=== PATIENT | male | born 1940 | race Caucasian/White ===

== ENCOUNTER 2021-06-23 00:03 | Emergency (ER) | payer OTHER ==
[~2021-06-23 00:03] MED LIST: ASPIRIN81 MG PO; CARDIZEM LA240 MG PO; COUMADIN5 MG PO; FLOMAX0.4 MG PO; K-DUR20 MEQ PO; LANOXIN125 MCG PO; LASIX40 MG PO; LIPITOR10 MG PO; PROTONIX40 MG PO; VITAMIN D250000 UNIT PO
[2021-06-23 01:10] LABS: BILIRUBIN NEGATIVE (NEGATIVE); BLOOD 2+ Ery/uL (NEGATIVE); COLOR YELLOW (YELLOW); GLUCOSE (U) NORMAL (NORMAL); LEUKOCYTES NEGATIVE Leu/uL (NEGATIVE); NITRITE NEGATIVE (NEGATIVE); PROTEIN NEGATIVE (NEGATIVE)
[2021-06-23 01:12] LABS: CLARITY SLIGHTLY HAZY (CLEAR)
[2021-06-23 01:18] LABS: BACTERIA TRACE
[2021-06-23 01:20] LABS: BUN/CREAT RATIO (CALC) 21.4 RATIO; CREATININE 0.84 mg/dL (0.67-1.17); POTASSIUM 4.1 mmol/L (3.5-5.1)
== END 2021-06-23 02:00 | disposition home or self-care (01) ==
LOC: FER 00:03
PROVIDERS: Emergency Medicine Emergency Medical Services
DX: R33.9 Retention of urine, unspecified (principal); Z88.4 Allergy status to anesthetic agent
CPT/HCPCS: 36415; 80048; 81001; 87088

== ENCOUNTER 2021-07-11 15:55 | Inpatient (IN) | payer OTHER ==
[~2021-07-11] VITALS: Ht 182.9 cm; Wt 82.6 kg
[2021-07-11 16:49] LABS: BASOPHIL 0.1 % (0-2); EOSINOPHIL 0 % (0-7); HCT 38.9 % (42.0-52.0); HGB 12.2 g/dl (13.2-18.0); LYMPHOCYTE 2.7 % (15-48); MCH 28.8 pg (25.0-31.0); MCHC 31.4 g/dL (32.0-36.0); MCV 91.7 fL (78.0-100.0); MONOCYTE 8.4 % (0-12); MPV 9.4 fL (6.0-9.5); NRBC 0; PLT 259 K/uL (150-400); RBC 4.24 M/uL (4.70-6.00); RDW 14.6 % (11.5-14.0); WBC 14.6 K/uL (4.0-10.5)
[2021-07-11 16:56] LABS: INR 2.91 (0.9-1.2); PROTHROMBIN TIME 29.4 SECONDS (11.8-13.4); PTT 30.6 SECONDS (24.4-34.7)
[2021-07-11 16:57] LABS: D-DIMER 3.4 ug/mLFEU (0.00-0.41)
[2021-07-11 17:07] LABS: IRON % SATURATION 8.5 %SAT (20-50)
[2021-07-11 17:22] LABS: ALBUMIN 2.4 g/dL (3.4-5.0); BILIRUBIN - TOTAL 1.6 mg/dL (0.2-1.0); BUN/CREAT RATIO (CALC) 15.6 RATIO; C-REACTIVE PROTEIN 12.7 mg/dL (<=0.90); CREATININE 1.35 mg/dL (0.67-1.17); GLOBULIN (CALCULATION) 4.2 g/dL; INFLUENZA A NAA NEGATIVE (NEGATIVE); MAGNESIUM 2.2 mg/dL (1.8-2.4); POTASSIUM 3.6 mmol/L (3.5-5.1); TOTAL PROTEIN 6.6 g/dL (6.4-8.2)
[2021-07-11 17:38] LABS: CORONAVIRUS 2019 SARS-COV-2 POSITIVE (NEGATIVE)
[2021-07-11 18:44] LABS: BILIRUBIN 1+ mg/dL (NEGATIVE); BLOOD 3+ Ery/uL (NEGATIVE); CLARITY CLEAR (CLEAR); COLOR YELLOW (YELLOW); GLUCOSE (U) NORMAL (NORMAL); LEUKOCYTES NEGATIVE Leu/uL (NEGATIVE); NITRITE NEGATIVE (NEGATIVE); PROTEIN TRACE (LOW) mg/dL (NEGATIVE); SPECIFIC GRAVITY 1.025 (1.001-1.030); pH 5.5 (5.0-9.0)
[2021-07-11 18:54] LABS: BACTERIA 1+; SQUAMOUS EPITHELIAL CELLS RARE; URINARY RBC TNTC
[2021-07-11] MEDS ORDERED: HYDROXYCHLOROQ200 MG PO (21:04)
[2021-07-11] MEDS ORDERED: VIBRAMYCIN100 MG PO (21:05)
[2021-07-11] MEDS ORDERED: PROMETHAZINE 2525 MG PO (21:06)
[2021-07-11] MEDS ORDERED: ONDANSETRON ODT8 MG PO (21:07)
[2021-07-12 07:33] LABS: BASOPHIL 0.1 % (0-2); EOSINOPHIL 0 % (0-7); HCT 34.2 % (42.0-52.0); LYMPHOCYTE 2.9 % (15-48); MCHC 32.2 g/dL (32.0-36.0); MCV 90.2 fL (78.0-100.0); MPV 9.6 fL (6.0-9.5); NEUTROPHIL 89.3 % (41-80); NRBC 0; PLT 210 K/uL (150-400); RBC 3.79 M/uL (4.70-6.00); RDW 14.6 % (11.5-14.0); WBC 10.7 K/uL (4.0-10.5)
[2021-07-12 08:15] LABS: ALBUMIN 2.1 g/dL (3.4-5.0); BILIRUBIN - TOTAL 1.2 mg/dL (0.2-1.0); BUN/CREAT RATIO (CALC) 30.3 RATIO; CREATININE 0.66 mg/dL (0.67-1.17); GLOBULIN (CALCULATION) 3.5 g/dL; POTASSIUM 4.3 mmol/L (3.5-5.1); TOTAL PROTEIN 5.6 g/dL (6.4-8.2)
[2021-07-12 09:01] LABS: PROTHROMBIN TIME 46.6 SECONDS (11.8-13.4)
[2021-07-12 09:04] LABS: INR 5.2 (0.9-1.2)
[2021-07-13 05:05] LABS: BASOPHIL 0.1 % (0-2); EOSINOPHIL 0 % (0-7); HCT 32.9 % (42.0-52.0); HGB 10.7 g/dl (13.2-18.0); MCH 29.2 pg (25.0-31.0); MCHC 32.5 g/dL (32.0-36.0); MCV 89.9 fL (78.0-100.0); MONOCYTE 7.7 % (0-12); MPV 9.7 fL (6.0-9.5); NEUTROPHIL 85.4 % (41-80); NRBC 0; PLT 258 K/uL (150-400); RBC 3.66 M/uL (4.70-6.00); RDW 14.6 % (11.5-14.0)
[2021-07-13 05:19] LABS: PROTHROMBIN TIME 54.4 SECONDS (11.8-13.4)
[2021-07-13 05:26] LABS: INR 6.32 (0.9-1.2)
[2021-07-13 05:57] LABS: ALBUMIN 2.3 g/dL (3.4-5.0); BUN/CREAT RATIO (CALC) 30.1 RATIO; C-REACTIVE PROTEIN 7.5 mg/dL (<=0.90); CREATININE 0.73 mg/dL (0.67-1.17); GLOBULIN (CALCULATION) 3.5 g/dL; TOTAL PROTEIN 5.8 g/dL (6.4-8.2)
--- NOTE | 2021-07-13 18:01 | NUR ---
07/13/21 Per telephone conversation with Ms. Kim. Mr. Kim lives at home with his spouse. He was independent in the home and community prior to admission. - PCP is Dr. Baldomero Mccullough. - Ms. Kim chose [facility] if needed at discharge. Please make appropriate referrals if patient is discharged over the weekend.
[2021-07-14 04:48] LABS: BASOPHIL 0.1 % (0-2); EOSINOPHIL 0 % (0-7); HCT 31.2 % (42.0-52.0); MCH 28.7 pg (25.0-31.0); MCHC 32.1 g/dL (32.0-36.0); MCV 89.7 fL (78.0-100.0); MONOCYTE 6.7 % (0-12); MPV 9.3 fL (6.0-9.5); NEUTROPHIL 87.4 % (41-80); NRBC 0; PLT 268 K/uL (150-400); RBC 3.48 M/uL (4.70-6.00); RDW 14.6 % (11.5-14.0); WBC 11.4 K/uL (4.0-10.5)
[2021-07-14 04:58] LABS: BUN/CREAT RATIO (CALC) 40.4 RATIO; CREATININE 0.57 mg/dL (0.67-1.17); POTASSIUM 4.5 mmol/L (3.5-5.1)
[2021-07-14 07:04] LABS: PROTHROMBIN TIME 56.5 SECONDS (11.8-13.4)
[2021-07-14 07:06] LABS: INR 6.62 (0.9-1.2)
[2021-07-15 04:17] LABS: PROTHROMBIN TIME 58.4 SECONDS (11.8-13.4)
[2021-07-15 04:20] LABS: INR 6.91 (0.9-1.2)
--- NOTE | 2021-07-15 19:09 | NUR ---
JOSE E DOLAN FOR PT TO SHOWER AND REMOVE TELE
[2021-07-16 06:03] LABS: BASOPHIL 0.1 % (0-2); EOSINOPHIL 0 % (0-7); HCT 28.5 % (42.0-52.0); HGB 9.2 g/dl (13.2-18.0); LYMPHOCYTE 3.2 % (15-48); MCH 28.6 pg (25.0-31.0); MCHC 32.3 g/dL (32.0-36.0); MCV 88.5 fL (78.0-100.0); MONOCYTE 6.9 % (0-12); MPV 9.4 fL (6.0-9.5); NEUTROPHIL 89.1 % (41-80); NRBC 0; PLT 302 K/uL (150-400); RBC 3.22 M/uL (4.70-6.00); RDW 14.3 % (11.5-14.0); WBC 13.2 K/uL (4.0-10.5)
[2021-07-16 06:14] LABS: PROTHROMBIN TIME 56.3 SECONDS (11.8-13.4)
[2021-07-16 06:35] LABS: BUN/CREAT RATIO (CALC) 53.3 RATIO; CREATININE 0.6 mg/dL (0.67-1.17); POTASSIUM 4.7 mmol/L (3.5-5.1)
[2021-07-16 06:42] LABS: INR 6.59 (0.9-1.2)
== END 2021-07-16 16:49 | disposition home health service (06) | DRG 177 ==
LOC: FER 15:55 → FTCU 07-12 14:49
PROVIDERS: Allergy & Immunology; Allergy & Immunology Allergy; Emergency Medicine; ADMIT Internal Medicine
PROC: XW033E5 Introduction of Remdesivir Anti-infective into Peripheral Vein, Percutaneous Approach, New Technology Group 5 (ICD-10-PCS; principal; 2021-07-11)
PROC: 8E0ZXY6 Isolation (ICD-10-PCS; 2021-07-11)
PROC: 5A09357 Assistance with Respiratory Ventilation, Less than 24 Consecutive Hours, Continuous Positive Airway Pressure (ICD-10-PCS; 2021-07-11)
PROC: XW0DXM6 Introduction of Baricitinib into Mouth and Pharynx, External Approach, New Technology Group 6 (ICD-10-PCS; 2021-07-12)
PROC: 5A0945A Assistance with Respiratory Ventilation, 24-96 Consecutive Hours, High Flow/Velocity Cannula (ICD-10-PCS; 2021-07-12)
DX: U07.1 COVID-19 (principal); J12.82 Pneumonia due to coronavirus disease 2019; J96.01 Acute respiratory failure with hypoxia; I50.33 Acute on chronic diastolic (congestive) heart failure; C15.9 Malignant neoplasm of esophagus, unspecified; E55.9 Vitamin D deficiency, unspecified; N40.0 Benign prostatic hyperplasia without lower urinary tract symptoms; I11.0 Hypertensive heart disease with heart failure; E78.5 Hyperlipidemia, unspecified; I48.0 Paroxysmal atrial fibrillation; M54.50 Low back pain, unspecified; G89.29 Other chronic pain; E11.9 Type 2 diabetes mellitus without complications; D64.9 Anemia, unspecified; Z90.49 Acquired absence of other specified parts of digestive tract; Z79.899 Other long term (current) drug therapy; Z79.01 Long term (current) use of anticoagulants; Z87.891 Personal history of nicotine dependence; Z95.2 Presence of prosthetic heart valve; Z92.21 Personal history of antineoplastic chemotherapy; Z91.14 Patient's other noncompliance with medication regimen
CPT/HCPCS: 36415; 36600; 71250; 80048; 80053; 80202; 81001; 82728; 82803; 82962; 83540; 83550; 83605; 83615; 83735; 83880; 84145; 84484; 85025; 85379; 85610; 85730; 86140; 87040; 87088; 93005; 94010; 94640; 94660; 94664; C9399; J1100; J1650; J1940; J2405; J2543; J2920; J2930; J3370; J7030; J7050; U0002